=== PATIENT | male | born 1940 | race Caucasian/White ===

== ENCOUNTER 2024-07-31 10:18 | Inpatient (IN) | payer OTHER ==
[~2024-07-31] VITALS: Ht 193 cm; Wt 94.9 kg
[2024-07-31] VITALS (14 sets, daily range): BP systolic 119–165; BP diastolic 52–94; PULSE 54–86; RESP 10–27; TEMP 97.6–98.2; O2SAT 100
[2024-07-31] MEDS ORDERED: BUPIvacaine/PF 0.25% 30ML VIAL IJ ONE (13:02)
[2024-07-31] MEDS ORDERED: LIDOCAINE HCL 1% MDV 50ML VIAL ONE (13:02)
[2024-07-31] MEDS ORDERED: SODIUM BICARB 50MEQ 50ML VIAL 50 ML ONE (13:02)
[2024-07-31] MEDS ORDERED: ceFAZolin SODIUM 1 GM VIAL ONE (13:03)
--- NOTE | 2024-07-31 13:17 | HP ---
[facility] HISTORY AND PHYSICAL Date of Service: July 31, 2024 Time of Service: 13:17 HISTORY OF PRESENT ILLNESS: 84-year-old male with past medical history of neurogenic bladder who presented to the hospital secondary to dizziness. Patient was initially admitted to [facility] secondary to dizziness which was present for one week. Patient states he rode his dizzy when he would rise up from seated to a standing position. He also felt short of breath. Denies any chest pain, fever chills, abdominal pain, nausea, vomiting. Denied any falls, syncopal episode. Denied any syncopal episode with activity, palpitations, chest pressure. He had currently does not take any medications at home. He only drinks two martinis every day. He has history of neurogenic bladder and does self catheterization. Denied any recent URI, dysuria. Patient was initially admitted to [facility] and was evaluated by Cardiology. The patient was noted to have symptomatic sinus bradycardia was admitted to the ICU. He was started on dopamine drip at 5 mcg. Cardiology recommended patient to be transferred to for consideration of pacemaker placement. Patient was noted to sinus bradycardia with heart rate ranging from 30s to 60s. He was also noted to sinus pauses. Labs from 07/30 showed white count of 4.85, hemoglobin was 10.8, MCV was 1 16.3, platelet count was 237 K, sodium was 144, potassium was 4.3, creatinine was noted to be elevated at 1.99 REVIEW OF SYSTEMS CONSTITUTIONAL: Denies fevers, chills, or night sweats. No unintentional weight loss reported. NEUROLOGICAL: Denies headache, amaurosis fugax, motor weakness, sensory deficit, vertigo/spinning sensation, gait abnormalities, or tremors. Positive for dizziness ENT: No hearing loss, otalgia, otorrhea, rhinitis, rhinorrhea, hoarseness, or sore throat. CARDIOVASCULAR: Denies any exertional angina, dyspnea on exertion, orthopnea, paroxysmal nocturnal dyspnea, palpitations, life-threatening arrhythmias, claudication. PULMONARY: Denies any cough, phlegm/sputum, hemoptysis, pleuritic chest pain. Positive for shortness of breath GASTROINTESTINAL: Denies any type of dysphagia to either liquids or solids. Denies nausea, vomiting, pyrosis, early satiety, abdominal pain, diarrhea, constipation, or changes in stool consistency or caliber. Denies coffee-ground emesis, hematemesis, hematochezia, or melanotic stools. GENITOURINARY: Denies frequency, urgency, nocturia, hematuria or incontinence (Storage/Irritative symptoms.) Low urinary stream, straining to void, urinary intermittency or hesitancy, splitting of the voiding stream, terminal dribbling. ENDOCRINOLOGIC: Denies polyuria, polydipsia, polyphagia or heat/cold intolerances. HEMATOLOGIC: Denies thrombophilia/previous clots, or coagulopathy/bleeding disorders. ONCOLOGIC: Denies personal history of malignancy. DERMATOLOGIC: Denies rashes or pruritus. PSYCHIATRIC: Denies any suicidal or homicidal ideation. Denies hallucinations. PAST MEDICAL HISTORY: History of neurogenic bladder PAST SURGICAL HISTORY: History of hernia repair PAST SOCIAL HISTORY: Denied any smoking. Drinks two martinis every day for at least five years. Denied any drug use FAMILY HISTORY: Denied any pertinent family history Coded Allergies: No Known Drug Allergies (Verified Allergy, Unknown, 07/31/24) PHYSICAL EXAM GENERAL APPEARANCE: The patient is awake, alert, and oriented, in no acute car diopulmonary distress. NEUROLOGICAL: Cranial nerves II-XII grossly intact. Motor is 5/5 in bilateral upper and lower extremities proximal to distal. No sensory deficits. HEENT: Face is symmetric. Pupils are equal and reactive. Extraocular movements are intact. NECK: Supple. No JVD. No thyromegaly. No submental, submandibular, pre- /postauricular, occipital or supraclavicular lymphadenopathy. CHEST: Normal chest expansion. No Telemetry. LUNGS: Absence of any rales, rhonchi or any wheezing. CARDIOVASCULAR: Regular. S1 and S2 normal. No appreciable rubs, murmurs or gallops. ABDOMEN: Soft, nontender, and nondistended. There is no rebound, voluntary guarding, or rigidity. : Deferred. No Landa. EXTREMITIES: Non-edematous and not cyanotic. No clubbing. Good capillary refill. SKIN: No skin breakdown. LABS: Labs were reviewed from [facility]. Labs from 07/30 showed white count of 4.85, hemoglobin was 10.8, MCV was 1 16.3, platelet count was 237 K, sodium was 144, potassium was 4.3, creatinine was noted to be elevated at 1.99 DIAGNOSTICS / RADIOLOGY: [ ] ASSESSMENT: Symptomatic bradycardia with associated dizziness POA Hypotension secondary bradycardia needing dopamine drip History of alcohol use Macrocytic anemia CHRIS versus underlying CKD History of neurogenic bladder with intermittent self catheterization PLAN: - patient to be admitted to ICU -in reference to symptomatic bradycardia. Patient will be undergoing pacemaker placement today by Cardiology. Appreciate recommendations. We will monitor patient post pacemaker placement. We will also request critical care consultation -check CBC, BMP TSH, A1c -closely monitor for alcohol withdrawals -start patient on thiamine and folic acid -further orders per hospitalization course. Advanced Care Planning Which of the following were discussed: Hospice care: Yes __ No _x_ Therapeutic options: Yes __ No __ Advance directives: Yes __ No __ Other discussions: Discussed with who?: patient (Patient, family or surrogates) Voluntary nature of this service was explained to the patient? Yes _x_ No __ Amount of time spent: 25 minutes WILLIAM Peterson MD, MD July 31, 2024 13:17
[2024-07-31 13:28] LABS: BASOPHILS # (AUTO) 0.07 K/uL (0.00-0.20); BASOPHILS % (AUTO) 1.2 % (0.0-5.0); EOSINOPHILS # (AUTO) 0.07 K/uL (0.00-0.70); EOSINOPHILS % (AUTO) 1.2 % (0.0-8.0); HEMATOCRIT 31.4 % (42-54); IMMATURE GRANULOCYTE ABSOLUTE 0.08 K/uL (0-1); LYMPHOCYTES # (AUTO) 1.3 K/uL (1.0-4.8); MEAN CORPUSCULAR HEMOGLOBIN 41.1 pg (27.0-33.0); MEAN CORPUSCULAR HGB CONC 34.7 g/dL (32.0-36.0); MEAN CORPUSCULAR VOLUME 118.5 fL (79-99); MONOCYTES # (AUTO) 0.6 K/uL (0.1-1.0); MONOCYTES % (AUTO) 10.6 % (3.0-13.0); NEUTROPHILS # (AUTO) 3.8 K/uL (1.8-7.7); NEUTROPHILS % (AUTO) 63.7 % (40.0-77.0); NUCLEATED RED BLOOD CELLS 0.3 % (0.0-0.19); PLATELET COUNT (AUTO) 240 K/uL (130-400); RED BLOOD CELL COUNT(AUTO) 2.65 MIL/uL (4.50-6.20); RED CELL DISTRIBUTION WIDTH 15.7 % (11.0-15.5)
[2024-07-31] MEDS ORDERED: acetaMINOPHEN 500 MG TABLET PO PRN ×2 (13:30→15:00)
[2024-07-31] MEDS ORDERED: PoTASSium chl 10% ELIXIR 20MEQ 20 MEQ/15 ML UDCUP PO PRN (13:30)
[2024-07-31] MEDS ORDERED: PoTASSium chloRIDE 20MEQ ER 20 MEQ ERTAB PO PRN (13:30)
[2024-07-31] MEDS ORDERED: PoTASSium chloRIDE 20MEQ/100ML 100 ML IV PRN (13:30)
[2024-07-31] MEDS ORDERED: MAGNESIUM 2GM PREMIX 50ML 50 ML IV PRN (13:30)
[2024-07-31 13:36] LABS: HEMOGLOBIN A1C 5.1 % (4.0-6.0)
[2024-07-31 13:45] LABS: CREATININE 1.6 mg/dL (0.5-1.3); POTASSIUM 4.4 mmol/L (3.5-5.1); THYROID STIMULATING HORMONE 0.86 uIU/mL (0.36-3.74)
--- NOTE | 2024-07-31 13:53 | CONS ---
[facility] CARDIAC ELECTROPHYSIOLOGY CONSULTATION Date Patient Seen: July 31, 2024 Time of Visit: 13:49 Reason for Consultation: Symptomatic bradycardia History of Present Illness: The patient is an 84 y.o. male with no significant past medical history who presents to [facility] with a one-week history of progressive dyspnea and orthostatic dizziness. He is normally very active. He was found to have sinus bradycardia with rates in the low 30s. His initial EKG shows sinus bradycardia at 50 beats per minute with first-degree AV block and normal QRS duration. He was having some sinus pauses but only up to about 2 seconds. The patient was transferred to the ICU for initiation of dopamine. He is now transferred for pacemaker implantation. Review of the tracing sent from [facility] show findings noted above. In addition, he is having pauses secondary to nonconducted PACs. He had an echocardiogram at [facility] which has not yet been officially interpreted but I did review it in it shows normal LV systolic function. Past Medical History: Nonsignificant Family History: Noncontributory Social History: Denies smoking or alcohol abuse Review of Systems: negative on a 13 point review Physical Examination: GENERAL: The patient is in no apparent distress HEENT: Within normal limits NECK: No JVD LUNGS: Clear HEART: Bradycardic with no murmurs ABD: Benign EXT: No edema Laboratory: [ ] Hematology Labs: Test 07/31/24 13:14 Range/Units White Blood Count 6.0 4.8-10.8 K/uL Red Blood Count 2.65 L 4.50-6.20 MIL/uL Hemoglobin 10.9 L 14.0-18.0 g/dL Hematocrit 31.4 L 42-54 % Mean Corpuscular Volume 118.5 H 79-99 fL Mean Corpuscular Hemoglobin 41.1 H 27.0-33.0 pg Mean Corpuscular Hemoglobin Concent 34.7 32.0-36.0 g/dL Red Cell Distribution Width 15.7 H 11.0-15.5 % Platelet Count 240 130-400 K/uL Mean Platelet Volume 10.9 H 7.5-10.5 fL Immature Granulocyte % (Auto) 1.3 H 0-1 % Neutrophils (%) (Auto) 63.7 40.0-77.0 % Lymphocytes (%) (Auto) 22.0 21.0-51.0 % Monocytes (%) (Auto) 10.6 3.0-13.0 % Eosinophils (%) (Auto) 1.2 0.0-8.0 % Basophils (%) (Auto) 1.2 0.0-5.0 % Neutrophils # (Auto) 3.8 1.8-7.7 K/uL Lymphocytes # (Auto) 1.3 1.0-4.8 K/uL Monocytes # (Auto) 0.6 0.1-1.0 K/uL Eosinophils # (Auto) 0.07 0.00-0.70 K/uL Basophils # (Auto) 0.07 0.00-0.20 K/uL Absolute Immature Granulocyte (auto 0.08 0-1 K/uL Nucleated Red Blood Cells 0.3 H 0.0-0.19 % Chemistry Labs: Test 07/31/24 13:14 Range/Units Sodium Level 141 136-145 mmol/L Potassium Level 4.4 3.5-5.1 mmol/L Chloride Level 106 101-111 mmol/L Carbon Dioxide Level 25 21-32 mmol/L Blood Urea Nitrogen 18 7-18 mg/dL Creatinine 1.6 H 0.5-1.3 mg/dL Glomerular Filtration Rate Calc 42 >90 mL/min Random Glucose 112 H 70-105 mg/dL Hemoglobin A1c 5.1 4.0-6.0 % Estimated Average Glucose (eAG) 100 70-126 mg/dL Total Calcium 8.6 8.5-10.1 mg/dL Thyroid Stimulating Hormone (TSH) 0.86 0.36-3.74 uIU/mL Assessment: This patient clearly has symptomatic sinus bradycardia. In addition there appears to be some degree of AV dawn disease with prolonged MA interval but no AV block. Plan: We will proceed with permanent pacemaker implantation. TANESHA ASHLEY MD July 31, 2024 13:53
[2024-07-31] MEDS ORDERED: FENTanyl CITRate PF 50 MCG/1 ML 2ML VIAL ONE (13:54)
[2024-07-31] MEDS ORDERED: MIDAZOLAM HCL 1 MG/ML 2ML VIAL ONE ×2 (13:54→14:03)
[2024-07-31 14:01] LABS: INR 1.02 (0.85-1.15); PROTHROMBIN TIME 10.8 SEC (9.6-11.6)
[2024-07-31 14:02] LABS: PARTIAL THROMBOPLASTIN TIME 29.9 SEC (26.3-35.5)
[2024-07-31] MEDS ORDERED: IOHEXOL-350 50ML VIAL IV ONE (14:03)
[2024-07-31] MEDS ORDERED: acetaMINOPHEN WITH coDEINE 1 TAB TAB PO PRN (15:00)
[2024-07-31] MEDS ORDERED: TRAM50TA4 PO (15:14)
--- NOTE | 2024-07-31 16:08 | NUR ---
PATIENT RETURNED FROM [facility] ASKED IF HE HAD ANY HOME MEDICATIONS, PATIENT DOES NOT TAKE ANY HOME MEDICATIONS.
--- NOTE | 2024-07-31 20:14 | CONS ---
[facility] CONSULTATION NOTE Date Patient Seen: July 31, 2024 Time of Visit: 20:09 Supervising Physician: [Dr. John Sanabria] Reason for Consultation: [ICU consult ] Primary Care Physician: [Dr. Catarino Carvalho ] Outpatient Specialists: [ ] Inpatient Consults: [EP: Dr. 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 Bedolla -Maintain hemodynamic stability to keep MAP >65 -Obtain echo in am -Monitor telemetry changes -activate CIWA protocol as warranted -IV NS @ 100 mls x 24 hours -Continue thiamine and folic acid supplement -Reinforce ETOH abstinence -discontinue Landa catheter in a.m. -keep sling at all times, monitor ppm site per nursing -The rest of medical management per primary team HPI: [Per hospitalist's notes: "84-year-old male with past medical history of neurogenic bladder who presented to the hospital secondary to dizziness. Patient was initially admitted to [facility] secondary to dizziness which was present for one week. Patient states he rode his dizzy when he would rise up from seated to a standing position. He also felt short of breath. Denies any chest pain, fever chills, abdominal pain, nausea, vomiting. Denied any falls, syncopal episode. Denied any syncopal episode with activity, palpitations, chest pressure. He had currently does not take any medications at home. He only drinks two martinis every day. He has history of neurogenic bladder and does self catheterization. Denied any recent URI, dysuria. Patient was initially admitted to [facility] and was evaluated by Cardiology. The patient was noted to have symptomatic sinus bradycardia was admitted to the ICU. He was started on dopamine drip at 5 mcg. Cardiology recommended patient to be transferred to [facility] for consideration of pacemaker placement. Patient was noted to sinus bradycardia with heart rate ranging from 30s to 60s. He was also noted to sinus pauses." [facility] team was consulted for critical care management. Upon visit, patient suboptimally interact with the interview. He claims he wanted to sleep and denies any symptoms at the time of the visit. He denies any medical history or taking any maintenance spells. He reports drinking 5 oz of liquor every day. Landa catheter was in place postop, we will discontinue in a.m.. Left sling in Situ with dressing on the pacemaker site CDI. We will continue to follow along patient's response to treatment and vitals. Goals of care were discussed with the patient verbalizes understanding and agreement.] PAST MEDICAL HX: see above PAST SURGICAL HX: noncontributory SOCIAL HISTORY: No tobacco or illicit drug use, drinks 5 oz of liquor daily Coded Allergies: No Known Drug Allergies (Verified Allergy, Unknown, 07/31/24) REVIEW OF SYSTEMS: 12 point ROS reviewed with patient. Pertinent positives mentioned above. Otherwise negative. PHYSICAL EXAM: GENERAL: alert, awake oriented x 3 HEENT: EOMI, Sclera non icteric, moist mucosa NECK: Supple, no JVD, trachea midline LUNGS: Clear breath sounds bilaterally. No wheezes HEART: Regular rate and rhythm. Normal S1 and S2, without murmurs ABD: Abdomen soft, nontender. Bowel sounds present EXT: No clubbing cyanosis or edema NEURO: Alert and oriented to person, follows commands Vital Signs (last 8hr) Date Time Temp Pulse Resp B/P (MAP) Pulse Ox O2 Delivery O2 Flow Rate FiO2 07/31/24 18:00 61 15 140/70 (93) 97 07/31/24 17:49 61 16 155/94 (114) 100 07/31/24 17:30 68 15 124/78 (93) 95 21 07/31/24 17:14 86 21 136/75 (95) 79 07/31/24 16:59 66 18 160/88 (112) 99 07/31/24 16:14 69 10 140/61 (87) 97 07/31/24 15:57 61 14 160/93 (115) 100 21 07/31/24 15:30 100 Room Air* 0 07/31/24 15:30 97.5 07/31/24 15:29 97.5 60 13 133/52 (79) 100 21 07/31/24 13:05 97.7 56 27 129/80 (96) 99 21 LABS: Hematology Labs: Test 07/31/24 13:14 Range/Units White Blood Count 6.0 4.8-10.8 K/uL Red Blood Count 2.65 L 4.50-6.20 MIL/uL Hemoglobin 10.9 L 14.0-18.0 g/dL Hematocrit 31.4 L 42-54 % Mean Corpuscular Volume 118.5 H 79-99 fL Mean Corpuscular Hemoglobin 41.1 H 27.0-33.0 pg Mean Corpuscular Hemoglobin Concent 34.7 32.0-36.0 g/dL Red Cell Distribution Width 15.7 H 11.0-15.5 % Platelet Count 240 130-400 K/uL Mean Platelet Volume 10.9 H 7.5-10.5 fL Immature Granulocyte % (Auto) 1.3 H 0-1 % Neutrophils (%) (Auto) 63.7 40.0-77.0 % Lymphocytes (%) (Auto) 22.0 21.0-51.0 % Monocytes (%) (Auto) 10.6 3.0-13.0 % Eosinophils (%) (Auto) 1.2 0.0-8.0 % Basophils (%) (Auto) 1.2 0.0-5.0 % Neutrophils # (Auto) 3.8 1.8-7.7 K/uL Lymphocytes # (Auto) 1.3 1.0-4.8 K/uL Monocytes # (Auto) 0.6 0.1-1.0 K/uL Eosinophils # (Auto) 0.07 0.00-0.70 K/uL Basophils # (Auto) 0.07 0.00-0.20 K/uL Absolute Immature Granulocyte (auto 0.08 0-1 K/uL Nucleated Red Blood Cells 0.3 H 0.0-0.19 % Red Blood Cell Morphology See comments Chemistry Labs: Test 07/31/24 13:14 Range/Units Sodium Level 141 136-145 mmol/L Potassium Level 4.4 3.5-5.1 mmol/L Chloride Level 106 101-111 mmol/L Carbon Dioxide Level 25 21-32 mmol/L Blood Urea Nitrogen 18 7-18 mg/dL Creatinine 1.6 H 0.5-1.3 mg/dL Glomerular Filtration Rate Calc 42 >90 mL/min Random Glucose 112 H 70-105 mg/dL Hemoglobin A1c 5.1 4.0-6.0 % Estimated Average Glucose (eAG) 100 70-126 mg/dL Total Calcium 8.6 8.5-10.1 mg/dL Magnesium Level 2.10 1.80-2.40 mg/dL Thyroid Stimulating Hormone (TSH) 0.86 0.36-3.74 uIU/mL Coagulation Labs: Test 07/31/24 13:14 Range/Units Prothrombin Time 10.8 9.6-11.6 SEC Prothromb Time International Ratio 1.02 0.85-1.15 Activated Partial Thromboplast Time 29.9 26.3-35.5 SEC DIAGNOSTICS / RADIOLOGY RESULTS: [ ] PLAN NEURO: Minimize central acting medications as possible. Maintain fall precautions, adequate lighting during the day PULMONARY: Supplemental 02 as needed. Maintain aspiration precautions at all times CARDIOVASCULAR: Follow hemodynamics. Vital signs per facility protocol GI & NUTRITION: Continue with nutritional support. Continue stool softeners and laxatives as needed. KIDNEYS & ELECTROLYTES: Strict monitoring of intake, output and overall fluid balance. Avoid nephrotoxic medications to the extent possible. Medications to be dosed according to renal function. Monitor electrolytes and replace as needed ENDOCRINE: Maintain blood glucose between 100-180 at all times. Hypoglycemia protocol in place INFECTIOUS DISEASE: Trend temperature, WBC and procalcitonin level Follow cultures, deescalate antibiotics as soon as possible. Panculture if new onset fever ONCOLOGY/HEMATOLOGY/COAGULATION: Monitor for s/s of bleeding Monitor hemoglobin, coagulation studies as needed SKIN: Pressure ulcer prevention per facility protocol Specialty mattress ORTHO/REHAB: Continue PT/OT Prophylaxis: Continue GI and DVT prophylaxis Code Status: Full Resuscitation Disposition: TBD Other: Total patient care time: 25 minutes DRISS GUIDO July 31, 2024 20:14
[2024-07-31] MEDS: FAMOTIDINE 20MG VIAL IV SCH (20:31)
[2024-07-31] MEDS: 0.9%NACL 1000ML 1,000 ML IV SCH (23:01)
[2024-08-01 01:44] VITALS: BP 148/81; PULSE 62; RESP 16
--- NOTE | 2024-08-01 03:30 | NUR ---
Transfer care endorsed to Kimberlee POOLE, report given and all pertinent paperwork and patient belongings transported with patient.
[2024-08-01 04:00] VITALS: BP 135/67; PULSE 68; RESP 18; TEMP 98.1
[2024-08-01 06:53] LABS: BASOPHILS # (AUTO) 0.06 K/uL (0.00-0.20); BASOPHILS % (AUTO) 1.1 % (0.0-5.0); EOSINOPHILS # (AUTO) 0.25 K/uL (0.00-0.70); EOSINOPHILS % (AUTO) 4.7 % (0.0-8.0); HEMATOCRIT 29.3 % (42-54); IMMATURE GRANULOCYTE ABSOLUTE 0.04 K/uL (0-1); LYMPHOCYTES # (AUTO) 1.5 K/uL (1.0-4.8); LYMPHOCYTES % (AUTO) 27.8 % (21.0-51.0); MEAN CORPUSCULAR HEMOGLOBIN 40.9 pg (27.0-33.0); MEAN CORPUSCULAR HGB CONC 33.8 g/dL (32.0-36.0); MEAN CORPUSCULAR VOLUME 121.1 fL (79-99); MONOCYTES # (AUTO) 0.6 K/uL (0.1-1.0); MONOCYTES % (AUTO) 10.8 % (3.0-13.0); NEUTROPHILS # (AUTO) 2.9 K/uL (1.8-7.7); NEUTROPHILS % (AUTO) 54.8 % (40.0-77.0); PLATELET COUNT (AUTO) 207 K/uL (130-400); RED BLOOD CELL COUNT(AUTO) 2.42 MIL/uL (4.50-6.20); WHITE BLOOD COUNT (AUTO) 5.3 K/uL (4.8-10.8)
[2024-08-01 07:00] VITALS: BP 134/66; PULSE 58; RESP 17; TEMP 98
[2024-08-01 07:01] LABS: CREATININE 1.5 mg/dL (0.5-1.3); POTASSIUM 4.5 mmol/L (3.5-5.1)
[2024-08-01] MEDS: THIAMINE HCL 100 MG TABLET PO SCH (08:48)
[2024-08-01] MEDS: FOLic ACID 1 MG TABLET PO SCH (08:48)
--- NOTE | 2024-08-01 09:19 | PN ---
[facility] PROGRESS NOTE Date of Service: August 01, 2024 Time of Service: 09:15 SUBJECTIVE: 84-year-old male with past medical history of neurogenic bladder who presented to the hospital secondary to dizziness. Patient was initially admitted to [facility] secondary to dizziness which was present for one week. Patient statesd he felt dizzy when he would rise up from seated to a standing position. He also felt short of breath. Denied any chest pain, fever chills, abdominal pain, nausea, vomiting. Denied any falls, syncopal episode. Denied any syncopal episode with activity, palpitations, chest pressure. He currently does not take any medications at home. He only drinks two martinis every day. He has history of neurogenic bladder and does self catheterization. Denied any recent URI, dysuria. Patient was initially admitted to [facility] and was evaluated by C ardiology. The patient was noted to have symptomatic sinus bradycardia was admitted to the ICU. He was started on dopamine drip at 5 mcg. Cardiology recommended patient to be transferred to [facility] for consideration of pacemaker placement. Patient was noted to sinus bradycardia with heart rate ranging from 30s to 60s. He was also noted to have sinus pauses. Labs from 07/30 showed white count of 4.85, hemoglobin was 10.8, MCV was 1 16.3, platelet count was 237 K, sodium was 144, potassium was 4.3, creatinine was noted to be elevated at 1.99 Patient evaluated by breastfeeding peer counselor here at [facility], the patient underwent successful pacemaker implantation 07/31/202408/01 patient currently in the PCU, on head of product, heart rate of 58, BP 134/66, afebrile, saturating normal on room air. CBC shows hemoglobin 9.9, hematocrit 29.3, WBC 5.3, platelet count of 207. Sodium 140 4.5, BUN of 60, creatinine better today at 1.5. During my visit the patient is comfortable, a lert oriented x3, case discussed with the RN, no acute events overnight, patient evaluated by agile scrum master, cleared to be discharged home today. Patient denies dizziness, no headache, no blurry vision, no chest pain, no shortness a breath, no nausea, no vomiting. REVIEW OF SYSTEMS CONSTITUTIONAL: Denies fevers, chills, or night sweats. No unintentional weight loss reported. NEUROLOGICAL: Denies headache, amaurosis fugax, motor weakness, sensory deficit, vertigo/spinning sensation, gait abnormalities, or tremors. Positive for dizziness ENT: No hearing loss, otalgia, otorrhea, rhinitis, rhinorrhea, hoarseness, or sore throat. CARDIOVASCULAR: Denies any exertional angina, dyspnea on exertion, orthopnea, paroxysmal nocturnal dyspnea, palpitations, life-threatening arrhythmias, claudication. PULMONARY: Denies any cough, phlegm/sputum, hemoptysis, pleuritic chest pain. Positive for shortness of breath GASTROINTESTINAL: Denies any type of dysphagia to either liquids or solids. Denies nausea, vomiting, pyrosis, early satiety, abdominal pain, diarrhea, constipation, or changes in stool consistency or caliber. Denies coffee-ground emesis, hematemesis, hematochezia, or melanotic stools. GENITOURINARY: Denies frequency, urgency, nocturia, hematuria or incontinence (Storage/Irritative symptoms.) Low urinary stream, straining to void, urinary intermittency or hesitancy, splitting of the voiding stream, terminal dribbling. ENDOCRINOLOGIC: Denies polyuria, polydipsia, polyphagia or heat/cold intolerances. HEMATOLOGIC: Denies thrombophilia/previous clots, or coagulopathy/bleeding disorders. ONCOLOGIC: Denies personal history of malignancy. DERMATOLOGIC: Denies rashes or pruritus. PSYCHIATRIC: Denies any suicidal or homicidal ideation. Denies hallucinations. PHYSICAL EXAM GENERAL APPEARANCE: The patient is awake, alert, and oriented, in no acute cardiopulmonary distress. NEUROLOGICAL: Cranial nerves II-XII grossly intact. Motor is 5/5 in bilateral upper and lower extremities proximal to distal. No sensory deficits. HEENT: Face is symmetric. Pupils are equal and reactive. Extraocular movements are intact. NECK: Supple. No JVD. No thyromegaly. No submental, submandibular, pre- /postauricular, occipital or supraclavicular lymphadenopathy. CHEST: Normal chest expansion. No Telemetry. LUNGS: Absence of any rales, rhonchi or any wheezing. CARDIOVASCULAR: Regular. S1 and S2 normal. No appreciable rubs, murmurs or gallops. ABDOMEN: Soft, nontender, and nondistended. There is no rebound, voluntary guarding, or rigidity. : Deferred. No Landa. EXTREMITIES: Non-edematous and not cyanotic. No clubbing. Good capillary refill. SKIN: No skin breakdown. Vital Signs (last 8hr) Date Time Temp Pulse Resp B/P (MAP) Pulse Ox O2 Delivery O2 Flow Rate FiO2 08/01/24 07:00 98.1 58 17 134/66 97 Room Air 08/01/24 04:00 98.1 68 18 135/67 99 Room Air 08/01/24 01:44 62 16 148/81 98 Room Air LABS: Laboratory: Test 08/01/24 06:38 07/31/24 13:14 Range/Units White Blood Count 5.3 4.8-10.8 K/uL Red Blood Count 2.42 L 4.50-6.20 MIL/uL Hemoglobin 9.9 L 14.0-18.0 g/dL Hematocrit 29.3 L 42-54 % Mean Corpuscular Volume 121.1 H 79-99 fL Mean Corpuscular Hemoglobin 40.9 H 27.0-33.0 pg Mean Corpuscular Hemoglobin Concent 33.8 32.0-36.0 g/dL Red Cell Distribution Width 16.0 H 11.0-15.5 % Platelet Count 207 130-400 K/uL Mean Platelet Volume 10.9 H 7.5-10.5 fL Immature Granulocyte % (Auto) 0.8 0-1 % Neutrophils (%) (Auto) 54.8 40.0-77.0 % Lymphocytes (%) (Auto) 27.8 21.0-51.0 % Monocytes (%) (Auto) 10.8 3.0-13.0 % Eosinophils (%) (Auto) 4.7 0.0-8.0 % Basophils (%) (Auto) 1.1 0.0-5.0 % Neutrophils # (Auto) 2.9 1.8-7.7 K/uL Lymphocytes # (Auto) 1.5 1.0-4.8 K/uL Monocytes # (Auto) 0.6 0.1-1.0 K/uL Eosinophils # (Auto) 0.25 0.00-0.70 K/uL Basophils # (Auto) 0.06 0.00-0.20 K/uL Absolute Immature Granulocyte (auto 0.04 0-1 K/uL Nucleated Red Blood Cells 0.0 0.0-0.19 % Sodium Level 143 136-145 mmol/L Potassium Level 4.5 3.5-5.1 mmol/L Chloride Level 109 101-111 mmol/L Carbon Dioxide Level 28 21-32 mmol/L Blood Urea Nitrogen 16 7-18 mg/dL Creatinine 1.5 H 0.5-1.3 mg/dL Glomerular Filtration Rate Calc 46 >90 mL/min Random Glucose 95 70-105 mg/dL Total Calcium 8.3 L 8.5-10.1 mg/dL Red Blood Cell Morphology See comments Prothrombin Time 10.8 9.6-11.6 SEC Prothromb Time International Ratio 1.02 0.85-1.15 Activated Partial Thromboplast Time 29.9 26.3-35.5 SEC Hemoglobin A1c 5.1 4.0-6.0 % Estimated Average Glucose (eAG) 100 70-126 mg/dL Magnesium Level 2.10 1.80-2.40 mg/dL Thyroid Stimulating Hormone (TSH) 0.86 0.36-3.74 uIU/mL Current Medications Medications (Trade) Dose Ordered Sig/Deng Route PRN Reason Start Time Stop Time Status Last Admin Dose Admin Acetaminophen (TYLenol 500MG TAB) 500 mg Q6H PRN PO MILD PAIN (1-3) 07/31/24 13:30 08/30/24 13:29 Acetaminophen (TYLenol 500MG TAB) 1,000 mg Q6H PRN PO MILD PAIN (1-3) 07/31/24 15:00 08/30/24 14:59 Acetaminophen/ Codeine Phosphate (TYLenol-coDEINE TAB) 2 tab Q4H PRN PO MODERATE PAIN LEVEL 4 TO 10 07/31/24 15:00 08/30/24 14:59 Famotidine (Pepcid 20mg Vial) 20 mg DAILY IV 07/31/24 21:00 08/30/24 20:59 08/01/24 08:48 20 MG Folic Acid (FOLic ACID 1 MG TABLET) 1 mg DAILY PO 08/01/24 09:00 08/31/24 08:59 08/01/24 08:48 1 MG Magnesium Sulfate 50 ml @ 0 mls/hr PROTOCOL PRN IV hypmagnesemia 07/31/24 13:30 08/30/24 13:29 Potassium Chloride 100 ml @ 100 mls/hr AD PRN IV POTASSIUM PROTOCOL 07/31/24 13:30 08/30/24 13:29 Potassium Chloride (K-Dur/Klor-Con 20meq) 20 meq AD PRN PO POTASSIUM PROTOCOL 07/31/24 13:30 08/30/24 13:29 Potassium Chloride (KCl 10% Elixir 20meq/15ml) 20 meq AD PRN PO POTASSIUM PROTOCOL 07/31/24 13:30 08/30/24 13:29 Sodium Chloride 1,000 ml @ 100 mls/hr Q10H IV 07/31/24 23:00 08/01/24 23:00 07/31/24 23:01 100 MLS/HR Thiamine HCl (Vitamin B-1) 100 mg DAILY PO 08/01/24 09:00 08/31/24 08:59 08/01/24 08:48 100 MG DIAGNOSTICS / RADIOLOGY: [ ] ASSESSMENT: Symptomatic bradycardia with associated dizziness POA Hypotension secondary bradycardia needing dopamine drip Status post pacemaker implantation [facility] [place]/2024 History of alcohol use Macrocytic anemia CHRIS versus underlying CKD History of neurogenic bladder with intermittent self catheterization PLAN: Patient remains admitted to the PCU Continue the patient on head of product Continue to follow electrophysiology input and recommendation Follow CBC transfuse as needed, continue to monitor creatinine level TSH level reviewed, abnormal range of 0.86 Patient with a history of alcohol use, monitor for signs of withdrawal Continue folic acid 1 mg p.o. daily and thiamine 100 mg p.o. daily. Discharged home today NEURO: Minimize central acting medications as possible. Fall Precautions. Well lighted room through the day and minimize interruptions through the night to prevent acute delirium. PULMONARY: Supplemental 02 as needed BiPAP as necessary, for respiratory distress Titrate Fio2 to keep Spo2 > or = 90% DuoNebs and CPT as needed IS hourly while awake for pulmonary hygiene prn Out of bed to chair as tolerated Maintain aspiration precautions at all times CARDIOVASCULAR: Follow hemodynamics. Vital signs per facility protocol GI & NUTRITION: Continue nutritional support Aspirations precautions Prokinetic agents and laxatives as needed KIDNEYS & ELECTROLYTES: Strict monitoring of intake and output Daily weights Avoid nephrotoxic agents Monitor electrolytes and replace as needed Goal urine output of 30mL/hr or 0.5mL/kg/hr Medications to be dosed according to renal function. Avoid contrast if possible ENDOCRINE: Maintain blood glucose between 100-180 at all times. Insulin sliding scale for blood glucose management Hypoglycemia and hyperglycemia protocol in place INFECTIOUS DISEASE: Trend temperature, WBC and procalcitonin level Follow cultures, deescalate antibiotics as soon as possible. Panculture if new onset fever HEMATOLOGY & COAGULATION: Monitor H&H. Keep Hgb > 7 Transfuse 1 unit of PRBC for Hgb < 7 Transfuse 1 pack of platelets of platelets < 20, 000 Watch for any signs and symptoms of bleeding SKIN: Pressure ulcer prevention per facility protocol Specialty mattress as needed ORTHO/REHAB Continue PT/OT PRN: MEDICATIONS Tylenol 650 mg po every 4 hrs for fever zofran 4 mg IV every 6 hrs for n/v Hydralazine 5 mg IV every 4 hrs systolic pressure > 160 bowel regiment: lactulose 20 gm PO BID PRN constipation Supportive measures: Continue GI and DVT prophylaxis Disposition: Pending improvement in clinical condition All questions answered time spent: > 35 min LILI ROMAN MD August 01, 2024 09:19
[2024-08-01 09:39] VITALS: O2SAT 100
--- NOTE | 2024-08-01 09:40 | HMCIMG ---
Exam Type: CHEST 1VW Clinical Information: s/p pacemaker Comparison: None Findings: The lungs are clear of infiltrates. The heart is enlarged in size. The bony and soft tissue structures of the chest are unremarkable. Left cardiac pacemaker is noted with leads in place. Impression: Clear lungs.
--- NOTE | 2024-08-01 10:45 | PN ---
[facility] PROGRESS NOTE Date Patient Seen: August 01, 2024 Time of Visit: 10:45 Supervising Physician: [ ] Primary Care Physician: [Dr. Catarino Carvalho ] Outpatient Specialists: [ ] Inpatient Consults: [EP: Dr. 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 Bedolla -Maintain hemodynamic stability to keep MAP >65 -Obtain echo in am -Monitor telemetry changes -activate CIWA protocol as warranted -IV NS @ 100 mls x 24 hours -Continue thiamine and folic acid supplement -Reinforce ETOH abstinence -discontinue Landa catheter in a.m. -keep sling at all times, monitor ppm site per nursing -The rest of medical management per primary team INTERVAL HISTORY: [ ] REVIEW OF SYSTEMS: 12 point ROS reviewed with patient. Pertinent positives mentioned above. Otherwise negative. PHYSICAL EXAM: GENERAL: alert, awake oriented x 3 HEENT: EOMI, Sclera non icteric, moist mucosa NECK: Supple, no JVD, trachea midline LUNGS: Clear breath sounds bilaterally. No wheezes HEART: Regular rate and rhythm. Normal S1 and S2, without murmurs ABD: Abdomen soft, nontender. Bowel sounds present EXT: No clubbing cyanosis or edema NEURO: Alert and oriented to person, follows commands Vital Signs (last 8hr) Date Time Temp Pulse Resp B/P (MAP) Pulse Ox O2 Delivery O2 Flow Rate FiO2 08/01/24 09:39 100 Room Air* 0 21 08/01/24 07:00 98.1 58 17 134/66 97 Room Air 08/01/24 04:00 98.1 68 18 135/67 99 Room Air LABS: Hematology Labs: Test 08/01/24 06:38 07/31/24 13:14 Range/Units White Blood Count 5.3 4.8-10.8 K/uL Red Blood Count 2.42 L 4.50-6.20 MIL/uL Hemoglobin 9.9 L 14.0-18.0 g/dL Hematocrit 29.3 L 42-54 % Mean Corpuscular Volume 121.1 H 79-99 fL Mean Corpuscular Hemoglobin 40.9 H 27.0-33.0 pg Mean Corpuscular Hemoglobin Concent 33.8 32.0-36.0 g/dL Red Cell Distribution Width 16.0 H 11.0-15.5 % Platelet Count 207 130-400 K/uL Mean Platelet Volume 10.9 H 7.5-10.5 fL Immature Granulocyte % (Auto) 0.8 0-1 % Neutrophils (%) (Auto) 54.8 40.0-77.0 % Lymphocytes (%) (Auto) 27.8 21.0-51.0 % Monocytes (%) (Auto) 10.8 3.0-13.0 % Eosinophils (%) (Auto) 4.7 0.0-8.0 % Basophils (%) (Auto) 1.1 0.0-5.0 % Neutrophils # (Auto) 2.9 1.8-7.7 K/uL Lymphocytes # (Auto) 1.5 1.0-4.8 K/uL Monocytes # (Auto) 0.6 0.1-1.0 K/uL Eosinophils # (Auto) 0.25 0.00-0.70 K/uL Basophils # (Auto) 0.06 0.00-0.20 K/uL Absolute Immature Granulocyte (auto 0.04 0-1 K/uL Nucleated Red Blood Cells 0.0 0.0-0.19 % Red Blood Cell Morphology See comments Chemistry Labs: Test 08/01/24 06:38 07/31/24 13:14 Range/Units Sodium Level 143 136-145 mmol/L Potassium Level 4.5 3.5-5.1 mmol/L Chloride Level 109 101-111 mmol/L Carbon Dioxide Level 28 21-32 mmol/L Blood Urea Nitrogen 16 7-18 mg/dL Creatinine 1.5 H 0.5-1.3 mg/dL Glomerular Filtration Rate Calc 46 >90 mL/min Random Glucose 95 70-105 mg/dL Total Calcium 8.3 L 8.5-10.1 mg/dL Hemoglobin A1c 5.1 4.0-6.0 % Estimated Average Glucose (eAG) 100 70-126 mg/dL Magnesium Level 2.10 1.80-2.40 mg/dL Thyroid Stimulating Hormone (TSH) 0.86 0.36-3.74 uIU/mL Coagulation Labs: Test 07/31/24 13:14 Range/Units Prothrombin Time 10.8 9.6-11.6 SEC Prothromb Time International Ratio 1.02 0.85-1.15 Activated Partial Thromboplast Time 29.9 26.3-35.5 SEC DIAGNOSTICS / RADIOLOGY RESULTS: [ ] PLAN NEURO: Minimize central acting medications as possible. Maintain fall precautions, adequate lighting during the day PULMONARY: Supplemental 02 as needed. Maintain aspiration precautions at all times CARDIOVASCULAR: Follow hemodynamics. Vital signs per facility protocol GI & NUTRITION: Continue with nutritional support. Continue stool softeners and laxatives as needed. KIDNEYS & ELECTROLYTES: Strict monitoring of intake, output and overall fluid balance. Avoid nephrotoxic medications to the extent possible. Medications to be dosed according to renal function. Monitor electrolytes and replace as needed ENDOCRINE: Maintain blood glucose between 100-180 at all times. Hypoglycemia protocol in place INFECTIOUS DISEASE: Trend temperature, WBC and procalcitonin level Follow cultures, deescalate antibiotics as soon as possible. Panculture if new onset fever ONCOLOGY/HEMATOLOGY/COAGULATION: Monitor for s/s of bleeding Monitor hemoglobin, coagulation studies as needed SKIN: Pressure ulcer prevention per facility protocol Specialty mattress ORTHO/REHAB: Continue PT/OT Prophylaxis: Continue GI and DVT prophylaxis Code Status: Full Resuscitation Disposition: TBD Other: Total patient care time: 25 minutes BARBARA HODGE August 01, 2024 10:45
--- NOTE | 2024-08-01 10:55 | DS ---
Discharge Summary Hospital Course Summary: 84-year-old male with past medical history of neurogenic bladder who presented to the hospital secondary to dizziness. Patient was initially admitted to [facility] secondary to dizziness which was present for one week. Patient statesd he felt dizzy when he would rise up from seated to a standing position. He also felt short of breath. Denied any chest pain, fever chills, abdominal pain, nausea, vomiting. Denied any falls, syncopal episode. Denied any syncopal episode with activity, palpitations, chest pressure. He currently does not take any medications at home. He only drinks two martinis every day. He has history of neurogenic bladder and does self catheterization. Denied any recent URI, dysuria. Patient was initially admitted to [facility] and was evaluated by Cardiology. The patient was noted to have symptomatic sinus bradycardia was admitted to the ICU. He was started on dopamine drip at 5 mcg. Cardiology recommended patient to be transferred to [facility] for consideration of pacemaker placement. Patient was noted to sinus bradycardia with heart rate ranging from 30s to 60s. He was also noted to have sinus pauses. Labs from 07/30 showed white count of 4.85, hemoglobin was 10.8, MCV was 1 16.3, platelet count was 237 K, sodium was 144, potassium was 4.3, creatinine was noted to be elevated at 1.99 Patient evaluated by occupational health and safety manager here at [facility], the patient underwent successful pacemaker implantation 07/31/202408/01 patient currently in the PCU, on monitoring engineer, heart rate of 58, BP 134/66, afebrile, saturating normal on room air. CBC shows hemoglobin 9.9, hematocrit 29.3, WBC 5.3, platelet count of 207. Sodium 140 4.5, BUN of 60, creatinine better today at 1.5. Paper Rewinder(s): Cardiology and electrophysiology Procedure(s): Pacemaker implantation 07/31/2024 Assessment/Plan: Final diagnosis Symptomatic bradycardia with associated dizziness POA Hypotension secondary bradycardia needing dopamine drip Status post pacemaker implantation [facility] [place] 07/31/2024 History of alcohol use Macrocytic anemia CHRIS versus underlying CKD History of neurogenic bladder with intermittent self catheterization Discharge Instructions: The patient to follow with lens polisher as an outpatient and to return to the hospital if condition changes, patient agreed with the plan and understood the information provided. Home Medications: Active Scripts Tramadol Hcl (Tramadol HCl) 50 Mg Tablet, 50 MG PO Q6HPRN PRN for PAIN, #15 TAB 0 Refills Prov:TANESHA ASHLEY MD 07/31/24 Time spent arranging discharge: 31-60 minutes LILI ROMAN MD August 01, 2024 10:55
[2024-08-01 11:00] VITALS: BP 130/60; PULSE 59; RESP 17; TEMP 98
--- NOTE | 2024-08-01 13:16 | PN ---
[facility] PROGRESS NOTE Date Patient Seen: August 01, 2024 Time of Visit: 10:00 Supervising Physician: Raul Russo MD Primary Care Physician: [Dr. Catarino Carvalho ] Outpatient Specialists: [ ] Inpatient Consults: [EP: Dr. 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 - follow cardiology recs - Dispo per primary team -chest x-ray with no pneumothorax post PPM INTERVAL HISTORY: Day one status post ppm. He is awake alert and oriented x3. With no complaints. Site with no signs and symptoms of infection. Per RN no major overnight events. CBC similar to yesterday. Hemoglobin stable 9.9/29.3. Chemistry unremarkable creatinine 1.5 GFR of 46. 2D echo pending report. Chest x-ray with clear lungs. No pneumothorax. REVIEW OF SYSTEMS: 12 point ROS reviewed with patient. Pertinent positives mentioned above. Otherwise negative. PHYSICAL EXAM: GENERAL: alert, awake oriented x 3 HEENT: EOMI, Sclera non icteric, moist mucosa NECK: Supple, no JVD, trachea midline LUNGS: Clear breath sounds bilaterally. No wheezes HEART: Regular rate and rhythm. Normal S1 and S2, without murmurs ABD: Abdomen soft, nontender. Bowel sounds present EXT: No clubbing cyanosis or edema NEURO: Alert and oriented to person, follows commands Vital Signs (last 8hr) Date Time Temp Pulse Resp B/P (MAP) Pulse Ox O2 Delivery O2 Flow Rate FiO2 08/01/24 11:00 98.1 59 17 130/60 95 Room Air 08/01/24 09:39 100 Room Air* 0 21 08/01/24 07:00 98.1 58 17 134/66 97 Room Air LABS: Hematology Labs: Test 08/01/24 06:38 07/31/24 13:14 Range/Units White Blood Count 5.3 4.8-10.8 K/uL Red Blood Count 2.42 L 4.50-6.20 MIL/uL Hemoglobin 9.9 L 14.0-18.0 g/dL Hematocrit 29.3 L 42-54 % Mean Corpuscular Volume 121.1 H 79-99 fL Mean Corpuscular Hemoglobin 40.9 H 27.0-33.0 pg Mean Corpuscular Hemoglobin Concent 33.8 32.0-36.0 g/dL Red Cell Distribution Width 16.0 H 11.0-15.5 % Platelet Count 207 130-400 K/uL Mean Platelet Volume 10.9 H 7.5-10.5 fL Immature Granulocyte % (Auto) 0.8 0-1 % Neutrophils (%) (Auto) 54.8 40.0-77.0 % Lymphocytes (%) (Auto) 27.8 21.0-51.0 % Monocytes (%) (Auto) 10.8 3.0-13.0 % Eosinophils (%) (Auto) 4.7 0.0-8.0 % Basophils (%) (Auto) 1.1 0.0-5.0 % Neutrophils # (Auto) 2.9 1.8-7.7 K/uL Lymphocytes # (Auto) 1.5 1.0-4.8 K/uL Monocytes # (Auto) 0.6 0.1-1.0 K/uL Eosinophils # (Auto) 0.25 0.00-0.70 K/uL Basophils # (Auto) 0.06 0.00-0.20 K/uL Absolute Immature Granulocyte (auto 0.04 0-1 K/uL Nucleated Red Blood Cells 0.0 0.0-0.19 % Red Blood Cell Morphology See comments Chemistry Labs: Test 08/01/24 06:38 07/31/24 13:14 Range/Units Sodium Level 143 136-145 mmol/L Potassium Level 4.5 3.5-5.1 mmol/L Chloride Level 109 101-111 mmol/L Carbon Dioxide Level 28 21-32 mmol/L Blood Urea Nitrogen 16 7-18 mg/dL Creatinine 1.5 H 0.5-1.3 mg/dL Glomerular Filtration Rate Calc 46 >90 mL/min Random Glucose 95 70-105 mg/dL Total Calcium 8.3 L 8.5-10.1 mg/dL Hemoglobin A1c 5.1 4.0-6.0 % Estimated Average Glucose (eAG) 100 70-126 mg/dL Magnesium Level 2.10 1.80-2.40 mg/dL Thyroid Stimulating Hormone (TSH) 0.86 0.36-3.74 uIU/mL Coagulation Labs: Test 07/31/24 13:14 Range/Units Prothrombin Time 10.8 9.6-11.6 SEC Prothromb Time International Ratio 1.02 0.85-1.15 Activated Partial Thromboplast Time 29.9 26.3-35.5 SEC DIAGNOSTICS / RADIOLOGY RESULTS: [PATIENT: CELINA PRESLEY MR#: [id number] : 1940 SEX: M AGE: 84 LOCATION: 2A ORDER 230 STATUS: ADM IN REPORT#: [id number] SERVICE 06 REASON: s/p pacemaker ORDERING PHYSICIAN: TANESHA ASHLEY MD PROCEDURE: CXR1VW - CHEST 1VW Exam Type: CHEST 1VW Clinical Information: s/p pacemaker Comparison: None Findings: The lungs are clear of infiltrates. The heart is enlarged in size. The bony and soft tissue structures of the chest are unremarkable. Left cardiac pacemaker is noted with leads in place. Impression: Clear lungs. DICTATED BY: SATINDER LYN MD DATE: 08/01/24935 ELECTRONICALLY SIGNED BY: SATINDER LYN MD DATE: 08/01/24939 ] PLAN NEURO: Minimize central acting medications as possible. Maintain fall precautions, adequate lighting during the day PULMONARY: Supplemental 02 as needed. Maintain aspiration precautions at all times CARDIOVASCULAR: Follow hemodynamics. Vital signs per facility protocol GI & NUTRITION: Continue with nutritional support. Continue stool softeners and laxatives as needed. KIDNEYS & ELECTROLYTES: Strict monitoring of intake, output and overall fluid balance. Avoid nephrotoxic medications to the extent possible. Medications to be dosed according to renal function. Monitor electrolytes and replace as needed ENDOCRINE: Maintain blood glucose between 100-180 at all times. Hypoglycemia protocol in place INFECTIOUS DISEASE: Trend temperature, WBC and procalcitonin level Follow cultures, deescalate antibiotics as soon as possible. Panculture if new onset fever ONCOLOGY/HEMATOLOGY/COAGULATION: Monitor for s/s of bleeding Monitor hemoglobin, coagulation studies as needed SKIN: Pressure ulcer prevention per facility protocol Specialty mattress ORTHO/REHAB: Continue PT/OT Prophylaxis: Continue GI and DVT prophylaxis Code Status: Full Resuscitation Disposition: TBD Other: Total patient care time: 25 minutes ATTESTATION BY PHYSICIAN I have evaluated the patient chart, medical records, and spoke with appropriate staff. I reviewed the documentation, medical decision making, and treatment plan as noted by the mid-level provider above. I agree with the findings and plan of care. Raul Russo MD, [facility] August 01, 2024 13:16
--- NOTE | 2024-08-01 14:16 | HMCSR ---
APPROVED REPORT EXAM: Two-dimensional and M-mode echocardiogram with Doppler and color Doppler. INDICATION ICD: Symptomatic bradycardia status post permanent pacemaker 2D Dimensions RVDd4.0 cmLVEF(%)54.9 (>50%)LVED Vol(simp.)126.0 mL IVSd0.9 (0.7-1.1cm)FS(%)29 %LVES Vol(simp.)63.0 mL LVDd5.2 (3.8-5.6cm)LA (2D)2.9 (1.6-4.0cm)LVEF(%, simp.)50 % PWd1.1 (0.7-1.1cm)Ao Root(2D)4.0 (2.0-3.7cm)LA ESV INDEX (BP)22.98 mL/m2 IVSs1.3 cmLVOT diam2.2 (1.8-2.4cm) LVDs3.7 (2.5-4.0cm)IVC diam1.2 cm PWs1.3 cm Deformation Strain Apical 4-12.8 % Apical 2-11.8 % Apical 3-15.7 % Global Strain-13.4 % M-Mode Dimensions EPSS1.0 cm LA (MM)3.1 (1.6-4.0cm) Ao Root(MM)3.7 (2.0-3.7cm) Mitral Valve MV E Vmax33.7 cm/sDECEL [id number] ms MV A Vmax61.5 cm/sP 1/2 T39 ms E/A ratio0.5MVA (PHT)5.6 cm2 TDI E/E' Medial9.3E/E' Lateral8.6 Medial E' Peak V3.64 cm/sLateral E' Peak V3.90 cm/s Pulmonary Valve PV Vmax0.8 m/s PV Peak GR2.8 mmHg Tricuspid Valve TR Vmax1.9 m/sRVSP14.4 mmHg TR Peak GR14.4 mmHg Left Ventricle The left ventricle is normal size. gls -13.0%. Septal bounce is present. There is normal left ventric ular wall thickness. LVEF is 50-55%. The left ventricular diastolic function is normal. Right Ventricle The right ventricle is normal size. The right ventricular systolic function is normal. Device lead is present in the right ventricle. Atria The left atrium size is normal. The right atrium size is normal. Aortic Valve Aortic valve is trileaflet and opens well. No aortic regurgitation is present by color doppler. There is no aortic valvular stenosis. AoV planimetry 5.3cm. Mitral Valve The mitral valve is thickened and opens well. There is no mitral valve regurgitation noted.. There i s no mitral valve stenosis. Tricuspid Valve The tricuspid valve is normal in structure. There is trace tricuspid valve regurgitation noted. Pulmonic Valve The pulmonary valve is normal in structure. There is trace/physiologic pulmonic valvular regurgitatio n. Great Vessels The aortic root is normal in size. The IVC is normal in size and collapses >50% with inspiration. Pericardium There is no pericardial effusion. Other Information Quality : AdequateRhythm : Pacemaker, frequent PACs Conclusion Underlying rhythm shows Ventricular paced rhythm, frequent PACs. LVEF is 50-55%. Septal bounce is present consistent with underlying interventricular conduction delay. Device lead is present in the right ventricle.
--- NOTE | 2024-08-04 11:54 | NUR ---
Transitional Phone Call Spoke to patient, states "doing just fine," denies pain. States "does not need [the prescribed medication]; denies pain or questions or concerns. States he has not scheduled appointment with cardiology - Dr. Bedolla but he will do it. Denies any questions or concerns.
== END 2024-08-01 11:45 | disposition home or self-care (01) | DRG 243 ==
LOC: 2BH 12:43 → 2AH 08-01 02:59
PROVIDERS: ADMIT Internal Medicine; ATTEND Internal Medicine
PROC: 0JH606Z Insertion of Pacemaker, Dual Chamber into Chest Subcutaneous Tissue and Fascia, Open Approach (ICD-10-PCS; principal; 2024-07-31)
PROC: 02H63JZ Insertion of Pacemaker Lead into Right Atrium, Percutaneous Approach (ICD-10-PCS; 2024-07-31)
PROC: 02HK3JZ Insertion of Pacemaker Lead into Right Ventricle, Percutaneous Approach (ICD-10-PCS; 2024-07-31)
DX: R00.1 Bradycardia, unspecified (principal); N17.9 Acute kidney failure, unspecified; I95.9 Hypotension, unspecified; D53.9 Nutritional anemia, unspecified; F10.10 Alcohol abuse, uncomplicated; N18.9 Chronic kidney disease, unspecified; Z95.0 Presence of cardiac pacemaker; Z79.899 Other long term (current) drug therapy
CPT/HCPCS: 33208; 36415; 71045; 80048; 83036; 83735; 84443; 85025; 85610; 85730; 93306; 93356; 99156; 99157; C1785; G0378; J0690; J2250; J3010; J3490; Q9967; C1898; J0665